=== PATIENT | female | born 1935 | race Caucasian/White ===

== ENCOUNTER → 2020-11-07 | Outpatient (CLI) | payer OTHER | LOC: GIR 15:29 | PROVIDERS: ATTEND Nurse Practitioner Family | DX: U07.1 COVID-19 (principal) | CPT/HCPCS: 87635 ==

== ENCOUNTER → 2020-11-27 | Outpatient (CLI) | payer MEDICARE, OTHER ==
[~2020-11-27] MED LIST: CATHETER FLUSH 10 ML SYR IV PRN
--- NOTE | 2020-11-27 10:59 | Diagnostic Imaging Report ---
Indication: Blood clots, elevated D-dimer. Technique: Patient received 5.4 mCi intravenous technetium 99 MAA and perfusion imaging performed. There was no pleural-based wedged configured perfusion defects. There were no findings to suggest pulmonary arterial embolus. Impression: Normal perfusion lung scan. Dictated by: Dictated on workstation # [id number]
== END ==
LOC: CARD 09:00
PROVIDERS: ATTEND Family Medicine
DX: R79.89 Other specified abnormal findings of blood chemistry (principal)
CPT/HCPCS: 78580; A9540